=== PATIENT | female | born 1970 | race Caucasian/White ===

== ENCOUNTER 2016-10-21 07:56 | Emergency (ER) | payer BC ==
[~2016-10-21] VITALS: Ht 167.6 cm; Wt 123.5 kg
[~2016-10-21 07:56] MED LIST: ATEN-173 PO; ATV5 PO; CIPR-255 PO; CLX/20 PO; HYZ/50125 PO; SUMA50TA15 PO
[2016-10-21 08:00] VITALS: TEMP 36.7; Ht 167.6 cm; Wt 123.5 kg
[2016-10-21] MEDS ORDERED: SODIUM CHLORIDE 0.9% 1000ML 1,000 ML IV ONE (08:15)
[2016-10-21] MEDS ORDERED: HYDR12.56 PO (08:24)
[2016-10-21 08:26] LABS: BASO % 0.6 %; BASO ABS # 0.03 K/uL (0-0.2); COMPLETE YES; EOS % 3.5 %; HEMATOCRIT 43.1 % (37-47); IG% 0.2 %; LYMPH % 31.2 %; LYMPH ABS # 1.68 K/uL (1.2-3.4); MEAN CORPUSCULAR HEMOGLOBIN 28.8 pg (25-34); MEAN CORPUSCULAR HGB CONC 33.9 g/dl (32-36); MEAN PLATELET VOLUME 10.3 fL (7.4-10.4); MONO % 8.5 %; PLATELET COUNT 212 K/uL (130-400); RED BLOOD COUNT 5.07 M/uL (4.2-5.4); WHITE BLOOD COUNT 5.39 K/uL (4.8-10.8)
[2016-10-21] MEDS ORDERED: MoRPHine SULFATE 4 MG/ML 1 ML CARP\\VIAL IV STA (08:28)
[2016-10-21 08:47] LABS: CALCIUM 8.5 mg/dl (8.5-10.1); CREATININE 0.8 mg/dl (0.60-1.20); POTASSIUM 3.6 mmol/L (3.5-5.1)
[2016-10-21] MEDS ORDERED: ONDANSETRON INJ 2 MG/ML 2 ML VIAL IV STA (08:47)
--- NOTE | 2016-10-21 08:48 | EMERGENCY ROOM VISIT NOTE ---
History First contact with patient: 08:04 Chief Complaint: ABDOMINAL PAIN Stated Complaint: LOWER RIGHT BELLY PAIN, POSSIBLE KIDNEY STONE Nursing Triage Summary: Pt states woke up at 0600 with RLQ pain. States feels similar to past kidney stones. N/V "from the pain" Denies difficulty urinating. Has been able to pass kidney stones in the past. History of Present Illness The patient is a 46 year old female who presents to the Emergency Room with complaints of right flank pain and dysuria. She woke up this morning with a sharp 7/10 left flank pain. The pain is constant. It is not positional. She was able to urinary this morning, but denies dysuria. No hematuria, no blood or pus in the urine. She has not taken any medication for pain control. She denies fevers, chills or nightsweats. Her appetite has been good. She had mild diarrhea yesterday but no history of constipation. She does have a history of renal stones x 3 in the past. They have all passed spontaneously. She does not follow with a urologist. Review of Systems A 10 point review of systems was negative unless stated above. Past Medical/Surgical History Medical Problems: (1) Calculus Of Kidney (2) Renal Colic Family History Cancer Diabetes mellitus Hypertension Lung disease Social History Smoking Status: Never Smoker Smokeless Tobacco Use: No Alcohol Use: occasionally (1 unit per week) Drug Use: none Marital Status: Housing Status: lives with family ( and 3 kids) Occupation Status: employed Current/Historical Medications Scheduled Atenolol (Tenormin), 25 MG PO DAILY Citalopram (Citalopram Hydrobromide), 20 MG PO DAILY Hydrochlorothiazide (Hctz), 12.5 MG PO DAILY Lorazepam (Lorazepam), 0.5 MG PO prn Multivitamin (Multivitamin), 1 TAB PO DAILY Sumatriptan Succinate (Imitrex), 50 MG PO PRN Tamsulosin Hcl (Flomax), 0.4 MG PO DAILY Scheduled PRN Oxycodone/Acetaminophen 5MG/325MG (Percocet 5MG/325MG), 1-2 TABLETS PO Q4H PRN for Pain Allergies Coded Allergies: No Known Allergies (Verified , 08/05/14) Physical Exam Vital Signs Date Time Temp Pulse Resp B/P Pulse Ox O2 Delivery O2 Flow Rate FiO2 10/21/16 11:46 67 17 167/103 97 10/21/16 11:34 67 17 167/103 97 Room Air 10/21/16 09:56 65 18 157/100 95 Room Air 10/21/16 08:00 36.7 72 18 172/113 95 Room Air Pain Rating (0-10): 7 Physical Exam Constitutional: Vital signs as above were reviewed. Patient noted to be hypertensive on arrival Eyes: Pupils equal, round, and reactive to light. Extraocular muscles are intact. No proptosis. No photophobia. ENT: Mucous membranes are moist. Oropharynx is clear. No sinus tenderness. TMs are clear bilaterally. Cardiovascular: Heart with a regular rate and rhythm. Pulses are palpable and symmetric in all 4 extremities. No pedal edema appreciated. Respiratory: Lungs clear to auscultation bilaterally. No wheezes, rales, or rhonchi appreciated. No accessory muscle use. No retractions. No increased work of breathing. GI: Abdomen soft, nontender, nondistended. Normal active bowel sounds. No abdominal hernias appreciated. No rebound. No guarding. Palpation of abdomen does not worsen or alleviate pain : No CVA tenderness appreciated. Musculoskeletal: No midline cervical or vertebral tenderness. No gross deformities. No bony tenderness. No calf swelling or tenderness. Integumentary: Warm, dry, no rashes appreciated. Neurological: Patient awake, alert, and oriented x 3. Cranial nerves two through 12 grossly intact. Motor 5 out of 5 strength bilateral upper and lower extremities. Lymph: No cervical lymphadenopathy appreciated. Medical Decision & Procedures ER Provider Diagnostic Interpretation: CT SCAN OF THE ABDOMEN AND PELVIS WITHOUT IV CONTRAST CLINICAL HISTORY: Lower abdominal pain. COMPARISON STUDY: Abdominal CT dated 08/05/2014. TECHNIQUE: CT scan of the abdomen and pelvis is performed from the lung bases to the proximal femora. Images are reviewed in the axial, sagittal, and coronal planes. IV contrast was not administered for this examination as per the referring clinician. Automated dose control exposure was utilized. CT DOSE: 1729.03 mGy.cm FINDINGS: Lung bases: The heart is top normal in size and without pericardial effusion. The lung bases are clear. There is a tiny hiatal hernia. Liver: The unenhanced liver is enlarged, measuring 18.5 cm in length. The liver demonstrates diffusely diminished attenuation consistent with severe hepatic steatosis. Fatty sparing is seen adjacent to the gallbladder fossa. There is no intrahepatic biliary ductal dilatation. Gallbladder: There are layering calcified gallstones. The gallbladder is otherwise normal in appearance. Spleen: The spleen is enlarged, measuring 14.8 cm in length. Pancreas: Unremarkable. Adrenal glands: Unremarkable. Kidneys: The unenhanced kidneys are normal in size. There is a 5 mm obstructing calculus at the right vesicoureteral junction seen on image #385. This causes mild to moderate right-sided hydroureteronephrosis. There is mild right-sided periureteric stranding. There are numerous (greater than 10 in each kidney) additional bilateral nonobstructing renal calculi measuring up to 10 mm. There is no left-sided hydronephrosis. There is no evidence of contour deforming renal mass lesion. Abdominal vasculature: The abdominal aorta is normal in course and caliber noting mild to moderate and age advanced atherosclerotic calcification. Bowel: The small bowel and colon are normal in course and caliber. The appendix is well-visualized and normal. Peritoneum: There is no intraperitoneal free air or abdominal ascites. There is a small fat-containing umbilical hernia. Lymphadenopathy: None. Pelvic viscera: The bladder, uterus, and adnexa are normal as visualized. There are small bilateral ovarian follicles. Trace free fluid is seen in the cul-de-sac. Skeletal structures: No lytic or blastic lesions are seen. IMPRESSION: 1. There is a 5 mm obstructing calculus at the right vesicoureteral junction. This causes mild to moderate right-sided hydroureteronephrosis. 2. There are numerous additional bilateral nonobstructing renal calculi as above. 3. Hepatomegaly and severe hepatic steatosis. 4. Cholelithiasis. 5. Splenomegaly. 6. There is trace and likely physiologic free fluid in the cul-de-sac. 7. Additional changes as above. Electronically signed by: William Trevizo M.D. 10/21/2016 10:43 AM Dictated Date/Time: 10/21/2016 10:37 AM Laboratory Results 10/21/16 08:10 Red Blood Count 5.07, Mean Corpuscular Volume 85.0, Mean Corpuscular Hemoglobin 28.8, Mean Corpuscular Hemoglobin Concent 33.9, Mean Platelet Volume 10.3, Neutrophils (%) (Auto) 56.0, Lymphocytes (%) (Auto) 31.2, Monocytes (%) (Auto) 8.5, Eosinophils (%) (Auto) 3.5, Basophils (%) (Auto) 0.6, Neutrophils # (Auto) 3.02, Lymphocytes # (Auto) 1.68, Monocytes # (Auto) 0.46, Eosinophils # (Auto) 0.19, Basophils # (Auto) 0.03 10/21/16 08:10 Test 10/21/16 08:10 10/21/16 08:42 White Blood Count 5.39 K/uL (4.8-10.8) Red Blood Count 5.07 M/uL (4.2-5.4) Hemoglobin 14.6 g/dL (12.0-16.0) Hematocrit 43.1 % (37-47) Mean Corpuscular Volume 85.0 fL (80-100) Mean Corpuscular Hemoglobin 28.8 pg (25-34) Mean Corpuscular Hemoglobin Concent 33.9 g/dl (32-36) Platelet Count 212 K/uL (130-400) Mean Platelet Volume 10.3 fL (7.4-10.4) Neutrophils (%) (Auto) 56.0 % Lymphocytes (%) (Auto) 31.2 % Monocytes (%) (Auto) 8.5 % Eosinophils (%) (Auto) 3.5 % Basophils (%) (Auto) 0.6 % Neutrophils # (Auto) 3.02 K/uL (1.4-6.5) Lymphocytes # (Auto) 1.68 K/uL (1.2-3.4) Monocytes # (Auto) 0.46 K/uL (0.11-0.59) Eosinophils # (Auto) 0.19 K/uL (0-0.5) Basophils # (Auto) 0.03 K/uL (0-0.2) RDW Standard Deviation 41.7 fL (36.4-46.3) RDW Coefficient of Variation 13.5 % (11.5-14.5) Immature Granulocyte % (Auto) 0.2 % Immature Granulocyte # (Auto) 0.01 K/uL (0.00-0.02) Anion Gap 12.0 mmol/L (3-11) Est Creatinine Clear Calc Drug Dose 117.8 ml/min Estimated GFR () 102.5 Estimated GFR (Non- 88.4 BUN/Creatinine Ratio 19.0 (10-20) Calcium Level 8.5 mg/dl (8.5-10.1) Urine Color YELLOW Urine Appearance CLOUDY (CLEAR) Urine pH 5.5 (4.5-7.5) Urine Specific Shiner 1.015 (1.000-1.030) Urine Protein TRACE (NEG) Urine Glucose (UA) NEG (NEG) Urine Ketones NEG (NEG) Urine Occult Blood 3+ (NEG) Urine Nitrite NEG (NEG) Urine Bilirubin NEG (NEG) Urine Urobilinogen NEG (NEG) Urine Leukocyte Esterase NEG (NEG) Urine WBC (Auto) 1-5 /hpf (0-5) Urine RBC (Auto) >30 /hpf (0-4) Urine Hyaline Casts (Auto) 1-5 /lpf (0-5) Urine Epithelial Cells (Auto) >30 /lpf (0-5) Urine Bacteria (Auto) NEG (NEG) Medications Administered Medications (Trade) Dose Ordered Sig/Lois Route Start Time Stop Time Status Last Admin Dose Admin Sodium Chloride (Nss 1000ml) 1,000 ml @ 999 mls/hr Q1H1M ONCE IV 10/21/16 08:15 10/21/16 09:15 DC 10/21/16 08:25 999 MLS/HR Morphine Sulfate (MoRPHine SULFATE INJ) 4 mg NOW STAT IV 10/21/16 08:28 10/21/16 08:31 DC 10/21/16 08:44 4 MG Ondansetron HCl (Zofran Inj) 4 mg NOW STAT IV 10/21/16 08:47 10/21/16 08:48 DC 10/21/16 08:52 4 MG ED Course 08:10 - Patient evaluated Orders: CBC, BMP, UA, 1 L NSS bolus 08:30 - Orders placed for 4 mg Morphine IV Stat + non-contrast CT of abdo/pelvis Precepted case with Dr. Murray 08:45 - Patient feeling nauseated; 4 mg Zofran IV stat ordered 09:40 - Labs reviewed WBC: normal; no anemia BMP: renal function in tact UA: blood; no leukocyte esterases or nitrites Patient re-assessed; feeling much better 10:50 - CT reviewed 5 mm non-obstructing stone noted on the right-side; with mild-moderate hydronephrosis 11:00 - Discussed results with patient; discussed discharge with conservative management with urology referral 11:30 - Patient discharged in stable condition. Medical Decision A thorough history was obtained, physical examination performed and the EMR was reviewed. The case was reviewed multiple times over with Dr. Trever Murray during the patient's ED visit. PDMP was reviewed as patient was prescribed and discharged on opioid medications. There were no issues noted. Patient presents with right sharp flank pain on background of renal stones. Differential diagnosis includes: renal stone, appendicitis, cholecystitis, hepatitis, ovarian cyst, ovarian torsion. Patient was sent for CT scan, which did confirm suspicion of obstruction right sided stone 5 mm. Size of 5mm has a good probability of passing spontaneously. Patient did have mild to moderate hydronephrosis on examination, but stone passage is expected to improve this. Further she has passed stones spontaneously in the past, improving her changes of doing so again on this occasion. As such we felt we could discharge her with symptomatic and supportive treatment. She was discharged with a short supply of Percocet. She was also given Tamsulosin to help with expulsion. Given her history of renal stones we felt outpatient urology follow-up would help in having a urologist determine if further work-up or intervention is required on this episode improves. Patient was discharged in stable condition. [place] Drug Monitoring Program Search Results: patient reviewed within database, no issues identified Impression Primary Impression: Right nephrolithiasis Departure Information Dispostion Home / Self-Care Condition GOOD Prescriptions Oxycodone/Acetaminophen 5MG/325MG (PERCOCET 5MG/325MG) Tab 1-2 TABLETS PO Q4H Y for Pain, #20 TAB Prov: Marvin Murray MD 10/21/16 Tamsulosin Hcl (FLOMAX) 0.4 Mg Cap 0.4 MG PO DAILY for 14 Days, #14 CAP Prov: Pranay Goodson MD 10/21/16 Referrals Pierce Vieira M.D. (PCP) Patient Instructions Kidney Stone Urine, [facility] [employer] Additional Instructions You have a right-sided kidney stone that is obstructing your ureter. You continue have multiple kidney stones on both sides but these are not causing any obstruction at this time. You do note that you have previously had kidney stones that you have passed spontaneously. The stone you have now is 5 mm, which has a good likelihood of passing it, especially if you have been able to pass the stone on your own previously. As such we will discharge you home and help treat your symptoms until you hopefully pass the stone. Your urine is negative for a urinary tract infection. You do have some mild enlargement of your right kidney due to back pressure from the obstruction but your kidney function is normal and we expect the kidney size will normalize one you have passed the stone. To help you pass the stone, we will give you medication for pain. Please do not drive or operate heavy machinery while taking this medication. We will also give you 2 weeks prescription for Flomax (Tamsulosin). This will help relax the urethral sphincter and help pass the stone. You can stop taking this if you see that you pass the stone. You can take Tylenol and Motrin as needed for pain as well. We will get you a follow-up appointment with urology since this is your 4th kidney stone. If your symptoms fail to improve, acutely worsen, please seek medical attention immediately by either calling your primary care provider or going to your nearest emergency department. Otherwise, please see your primary care provider in 3-5 days to ensure that your symptoms continue to improve.
[2016-10-21 09:05] LABS: URINE APPEARANCE CLOUDY (CLEAR); URINE BILIRUBIN NEG (NEG); URINE COLOR YELLOW; URINE EPITHELIAL CELL AUTO >30 /lpf (0-5); URINE NITRITE NEG (NEG); URINE PH 5.5 (4.5-7.5); URINE SPECIFIC GRAVITY 1.015 (1.000-1.030); UROBILINOGEN NEG (NEG); ZZUR CULT IF INDIC CLEAN CATCH NO
[2016-10-21 09:10] LABS: MANUAL MICROSCOPIC REQUIRED? NO; REVIEW REQ? NO
--- NOTE | 2016-10-21 10:44 | DIAGNOSTIC IMAGING REPORT ---
CT SCAN OF THE ABDOMEN AND PELVIS WITHOUT IV CONTRAST CLINICAL HISTORY: Lower abdominal pain. COMPARISON STUDY: Abdominal CT dated 08/05/2014. TECHNIQUE: CT scan of the abdomen and pelvis is performed from the lung bases to the proximal femora. Images are reviewed in the axial, sagittal, and coronal planes. IV contrast was not administered for this examination as per the referring clinician. Automated dose control exposure was utilized. CT DOSE: 1729.03 mGy.cm FINDINGS: Lung bases: The heart is top normal in size and without pericardial effusion. The lung bases are clear. There is a tiny hiatal hernia. Liver: The unenhanced liver is enlarged, measuring 18.5 cm in length. The liver demonstrates diffusely diminished attenuation consistent with severe hepatic steatosis. Fatty sparing is seen adjacent to the gallbladder fossa. There is no intrahepatic biliary ductal dilatation. Gallbladder: There are layering calcified gallstones. The gallbladder is otherwise normal in appearance. Spleen: The spleen is enlarged, measuring 14.8 cm in length. Pancreas: Unremarkable. Adrenal glands: Unremarkable. Kidneys: The unenhanced kidneys are normal in size. There is a 5 mm obstructing calculus at the right vesicoureteral junction seen on image #385. This causes mild to moderate right-sided hydroureteronephrosis. There is mild right-sided periureteric stranding. There are numerous (greater than 10 in each kidney) additional bilateral nonobstructing renal calculi measuring up to 10 mm. There is no left-sided hydronephrosis. There is no evidence of contour deforming renal mass lesion. Abdominal vasculature: The abdominal aorta is normal in course and caliber noting mild to moderate and age advanced atherosclerotic calcification. Bowel: The small bowel and colon are normal in course and caliber. The appendix is well-visualized and normal. Peritoneum: There is no intraperitoneal free air or abdominal ascites. There is a small fat-containing umbilical hernia. Lymphadenopathy: None. Pelvic viscera: The bladder, uterus, and adnexa are normal as visualized. There are small bilateral ovarian follicles. Trace free fluid is seen in the cul-de-sac. Skeletal structures: No lytic or blastic lesions are seen. IMPRESSION: 1. There is a 5 mm obstructing calculus at the right vesicoureteral junction. This causes mild to moderate right-sided hydroureteronephrosis. 2. There are numerous additional bilateral nonobstructing renal calculi as above. 3. Hepatomegaly and severe hepatic steatosis. 4. Cholelithiasis. 5. Splenomegaly. 6. There is trace and likely physiologic free fluid in the cul-de-sac. 7. Additional changes as above. Electronically signed by: William Trevizo M.D. 10/21/2016 10:43 AM Dictated Date/Time: 10/21/2016 10:37 AM
[2016-10-21] MEDS ORDERED: TAMS0.4C38 PO (11:16)
[2016-10-21] MEDS ORDERED: OXYC-57 PO (11:18)
--- NOTE | 2016-10-21 11:22 | EMERGENCY ROOM VISIT NOTE ---
ED Visit Note First contact with patient: 08:04 Patient evaluated with resident. 46 room presents into the emergency room for evaluation of right-sided flank pain with history of ureterolithiasis. CT demonstrate a 5 mm stone. It is noted that on my examination patient clearly had no right upper quadrant tenderness although some gallstones were noted on CT. I believe that today's diagnosis is consistent with ureter lithiasis and not cholecystitis.
[2016-10-21 11:46] VITALS: BP 167/103; PULSE 67; O2SAT 97
[2016-10-21] MEDS ORDERED: MULT-506 PO (12:02)
== END 2016-10-21 11:47 | disposition home or self-care (01) ==
LOC: C.EDB 07:58
DX: N20.0 Calculus of kidney (principal)